=== PATIENT | female | born 1995 ===

== ENCOUNTER → 2019-08-24 | Outpatient (CLI) | payer OTHER ==
[2019-08-26 23:07] LABS: CHLAMYDIA TRACHOMATIS, NAA Negative (Negative); NEISSERIA GONORRHOEAE, NAA Negative (Negative)
== END | disposition home or self-care (01) ==
LOC: LAB SHORT 19:14 → LAB 19:14
PROVIDERS: Obstetrics & Gynecology
DX: Z34.82 Encounter for supervision of other normal pregnancy, second trimester (principal); Z36.89 Encounter for other specified antenatal screening
CPT/HCPCS: 87491; 87591; G0123

== ENCOUNTER 2019-12-15 14:54 | Emergency (ER) | payer OTHER ==
[~2019-12-15] VITALS: Ht 157.5 cm; Wt 65.8 kg
== END 2019-12-15 15:16 | disposition other institution (70) ==
LOC: OBS 14:54 → ER 14:54 → OBS 15:16
DX: O99.891 Other specified diseases and conditions complicating pregnancy (principal); H53.9 Unspecified visual disturbance; Z53.21 Procedure and treatment not carried out due to patient leaving prior to being seen by health care provider; R19.7 Diarrhea, unspecified; O21.2 Late vomiting of pregnancy; Z3A.30 30 weeks gestation of pregnancy
CPT/HCPCS: 36415

== ENCOUNTER → 2020-01-30 | Outpatient (CLI) | payer OTHER ==
[~2020-01-30] MED LIST: ASPI81CH PO; DOCU100 PO; IBU800 MG PO; ONDA4ODT MM; PRENATAL TABLE1 EAC2 PO; Percocet 5-3251 EACH PO
== END | disposition home or self-care (01) ==
LOC: LAB 14:30 → LAB SHORT 14:30
DX: Z34.83 Encounter for supervision of other normal pregnancy, third trimester (principal)
CPT/HCPCS: 87081; 87150

== ENCOUNTER 2020-02-16 15:47 | Inpatient (IN) | payer OTHER ==
[~2020-02-16] VITALS: Ht 157.5 cm; Wt 77.0 kg
[2020-02-21] MEDS ORDERED: PRENATAL TABLE1 EAC2 PO (06:23)
[2020-02-21] MEDS ORDERED: ASPI81CH PO (06:23)
[2020-02-21 06:50] LABS: BASOPHILS ABSOLUTE AUTO 0.06 K/mm3 (0.00-0.23); BASOPHILS PERCENT AUTO 1 % (0-2); EOSINOPHILS ABSOLUTE AUTO 0.42 K/mm3 (0.00-0.68); EOSINOPHILS PERCENT AUTO 4 % (0-6); Hematocrit 34.3 % (33.0-51.0); Hemoglobin 11.3 g/dL (11.5-16.0); IMMATURE GRAN ABSOLUTE AUTO 0.09 K/mm3 (0.00-0.10); IMMATURE GRAN PERCENT AUTO 1 % (0-1); LYMPHOCYTES ABSOLUTE AUTO 2.95 K/mm3 (0.84-5.20); LYMPHOCYTES PERCENT AUTO 25 % (21-46); MONOCYTES ABSOLUTE AUTO 0.72 K/mm3 (0.16-1.47); MONOCYTES PERCENT AUTO 6 % (4-13); Mean Corpuscular HGB 28.3 pg (26.0-34.0); Mean Corpuscular HGB Conc 32.9 g/dL (31.5-36.5); Mean Corpuscular Volume 86 fL (80-100); NEUTROPHILS ABSOLUTE AUTO 7.37 K/mm3 (1.96-9.15); NEUTROPHILS PERCENT AUTO 64 % (41-73); RDW Coefficient Variation 13.3 % (11.7-14.2); RDW Standard Deviation 41.1 fL (35.1-46.3); White Blood Cell Count 11.61 K/mm3 (4.00-11.30)
[2020-02-21 07:09] LABS: Platelet Count 158 K/mm3 (150-400)
[2020-02-21 08:18] LABS: U Amphetamine Screen Not Detected; U Barbituate Screen Not Detected; U Benzodiazapine Screen Not Detected; U Buprenorphine Screen Not Detected; U Cannabinoids Screen DETECTED; U Cocaine Screen Not Detected; U Methadone Screen Not Detected; U Methamphetamine Screen Not Detected; U Opiates Screen Not Detected; U Oxycodone Screen Not Detected; U Phencyclidine Screen Not Detected; U Propoxyphene Screen Not Detected
--- NOTE | 2020-02-21 08:19 | NUR ---
02/21/20 0819 Lona Doss SECTION WITH VIABLE BABY BOY. CORD SENT FOR GASSES. RIGHT AND LEFT FALLOPAIN TUBES LABELED AND TO PATHOLOGY.
[2020-02-21 08:24] LABS: PCO2 Cord - Arterial 52.1 mmHg (40-50); PO2 Cord - Arterial 13.2 mmHg (16-20); pH Cord - Arterial 7.26 (7.28-7.35)
[2020-02-21 08:25] LABS: pH Umbilical Cord - Venous 7.31 (7.26-7.35)
[2020-02-21 08:26] LABS: PCO2 Cord - Venous 44 mmHg (40-50); PO2 Cord - Venous 21 mmHg (28-32)
--- NOTE | 2020-02-21 12:40 | NUR ---
PT UP TO W/C TO [facility] TO SEE .
--- NOTE | 2020-02-21 13:25 | NUR ---
PT IN W/C SIGNED AMA PAPERS FOR GOING OUT TO SMOKE
--- NOTE | 2020-02-21 15:25 | NUR ---
[facility] AT BEDSIDE DISCUSSING PLAN ON CARE AND GOING OVER CONSENT WITH MOM.
--- NOTE | 2020-02-21 16:10 | NUR ---
DR ROBLES AT BEDSIDE, DISCUSSING DISCHARGE. DRESSING ASSESSED.
[2020-02-21] MEDS ORDERED: DOCU100 PO (16:30)
[2020-02-21] MEDS ORDERED: Percocet 5-3251 EACH PO (16:30)
[2020-02-21] MEDS ORDERED: IBU800 MG PO (16:30)
[2020-02-21] MEDS ORDERED: ONDA4ODT MM (16:31)
--- NOTE | 2020-02-21 17:00 | NUR ---
DISCHARGE INSTRUCTIONS REVIEWED AND SIGNED. PT DISCHARGED TO HOME. PLANNING ON GOING TO [facility] AND THEN GO UP TO [facility] TO BE WITH INFANT.
== END 2020-02-21 16:58 | disposition home or self-care (01) | DRG 785 ==
LOC: BC 02-21 06:07
PROVIDERS: ADMIT Obstetrics & Gynecology
PROC: 10D00Z1 Extraction of Products of Conception, Low, Open Approach (ICD-10-PCS; principal; 2020-02-21 07:30)
PROC: 0UT70ZZ Resection of Bilateral Fallopian Tubes, Open Approach (ICD-10-PCS; 2020-02-21 07:30)
DX: O34.211 Maternal care for low transverse scar from previous cesarean delivery (principal); Z3A.39 39 weeks gestation of pregnancy; Z37.0 Single live birth; Z30.2 Encounter for sterilization
CPT/HCPCS: 36415; 82803; 85025; 86850; 86900; 86901; 88302; A9270; J0690; J1100; J1885; J2370; J2405; J2590; J2704; J2710; J2765; J3010; J7120